=== PATIENT | male | born 1990 | race Caucasian/White ===

== ENCOUNTER 2018-05-24 15:06 | Emergency (ER) | payer SELFPAY ==
--- NOTE | 2018-05-24 16:17 | ER ---
Nurse's Notes [facility] Name: Harvinder Garcia Age: 27 yrs Sex: Male : 1990 Arrival Date: 05/24/2018 Time: 15:08 Bed 9 Private MD: Diagnosis: Cutaneous abscess of face Presentation: 05/24 15:27 Presenting complaint: Patient states: "I had a pimple on my right cheek and I messed aj with it last night but then I woke up and it is even more red and swollen." Abscess noted to right cheek. Transition of care: patient was not received from another setting of care. Onset of symptoms was May 23, 2018. Risk Assessment: Do you want to hurt yourself or someone else? Patient reports no desire to harm self or others. Initial Sepsis Screen: Does the patient meet any 2 criteria? No. Patient's initial sepsis screen is negative. Does the patient have a suspected source of infection? No. Patient's initial sepsis screen is negative. Care prior to arrival: None. 15:27 Method Of Arrival: Ambulatory 15:27 Acuity: MALCOLM 5 aj Triage Assessment: 15:29 General: Appears in no apparent distress. comfortable, Behavior is calm, cooperative, aj appropriate for age. Pain: Complains of pain in right cheek. Neuro: Level of Consciousness is awake, alert, obeys commands, Oriented to person, place, time, situation, Appropriate for age. Respiratory: Airway is patent Respiratory effort is even, unlabored, Respiratory pattern is regular, symmetrical. Derm: Skin is intact, is healthy with good turgor, Skin is pink, warm \\T\\ dry. normal, Abscess located on right cheek is dime sized, has no drainage, is red. Historical: - Allergies: 15:29 No Known Allergies; aj - Home Meds: 15:29 None [Active]; aj - PMHx: 15:29 None; aj - PSHx: 15:29 Left Thumb; aj - Immunization history:: Adult Immunizations up to date, Last tetanus immunization: up to date. - Social history:: Smoking status: Patient/guardian denies using tobacco. - Ebola Screening: : Patient negative for fever greater than or equal to 101.5 degrees Fahrenheit, and additional compatible Ebola Virus Disease symptoms Patient denies exposure to infectious person Patient denies travel to an Ebola-affected area in the 21 days before illness onset No symptoms or risks identified at this time. Screenin:41 Abuse screen: Denies threats or abuse. Denies injuries from another. Nutritional ss screening: No deficits noted. Tuberculosis screening: No symptoms or risk factors identified. Never had TB. Fall Risk None identified. Assessment: 15:41 General: Appears in no apparent distress. comfortable, Behavior is calm, cooperative. ss Pain: Denies pain. Neuro: Level of Consciousness is awake, alert, obeys commands. Cardiovascular: Capillary refill < 3 seconds is brisk in bilateral fingers. Respiratory: Airway is patent Respiratory effort is even, unlabored, Respiratory pattern is regular, symmetrical. GI: No signs and/or symptoms were reported involving the gastrointestinal system. Derm: Skin is intact, is healthy with good turgor, Skin is pink, warm \\T\\ dry. normal. Derm: Abscess located on right cheek is dime sized, is raised. Musculoskeletal: Circulation, motion, and sensation intact. Range of motion: intact in all extremities, Swelling absent. Vital Signs: 15:29 BP 120 / 77; Pulse 77; Resp 20; Temp 98.9; Pulse Ox 98% on R/A; Weight 104.33 kg; aj Height 6 ft. 2 in. (187.96 cm); 15:29 Body Mass Index 29.53 (104.33 kg, 187.96 cm) aj ED Course: 15:08 Patient arrived in ED. as 15:29 Triage completed. aj 15:29 Arm band placed on left wrist. Patient placed in waiting room. aj 15:41 Patient has correct armband on for positive identification. Bed in low position. Call ss light in reach. 15:45 Srinath Markham, ASIYA is PHCP. pm1 15:45 Endy Cade MD is Attending Physician. pm1 16:22 Ann Santa RN is Primary Nurse. ss 16:24 No provider procedures requiring assistance completed. Patient did not have IV access ss during this emergency room visit. Administered Medications: No medications were administered Outcome: 16:16 Discharge ordered by MD. pm1 16:24 Discharged to home ambulatory, with significant other. ss 16:24 Condition: good 16:24 Discharge instructions given to patient, significant other, Instructed on discharge instructions, follow up and referral plans. medication usage, Demonstrated understanding of instructions, follow-up care, medications, Prescriptions given X 1. 16:25 Patient left the ED. ss Signatures: Francesca Dorsey RN RN aj Martinez, Amelia as Smirch, Shelby, RN RN ss Srinath Markham, ASIYA RA[employer] UN[employer]ER pm1
--- NOTE | 2018-05-24 16:17 | EDPHYS ---
Physician Documentation [facility] Name: Harvinder Garcia Age: 27 yrs Sex: Male : 1990 Arrival Date: 05/24/2018 Time: 15:08 Bed 9 Private MD: ED Physician Endy Cade HPI: 05/24 16:14 This 27 yrs old Male presents to ER via Ambulatory with complaints of Abscess.pm1 16:14 the patient presents with a swollen area of the right cheek. Description: raised. pm1 Onset: The symptoms/episode began/occurred 3 day(s) ago. Possible cause(s): unknown, pimple. Associated signs and symptoms: Pertinent negatives: discharge, drainage, fever, headache. Modifying factors: the symptoms are alleviated by cold compress, the symptoms are aggravated by attempting to express. Severity of symptoms: in the emergency department the symptoms have improved. The patient has not experienced similar symptoms in the past. The patient has not recently seen a physician. Historical: - Allergies: 15:29 No Known Allergies; aj - Home Meds: 15:29 None [Active]; aj - PMHx: 15:29 None; aj - PSHx: 15:29 Left Thumb; aj - Immunization history:: Adult Immunizations up to date, Last tetanus immunization: up to date. - Social history:: Smoking status: Patient/guardian denies using tobacco. - Ebola Screening: : Patient negative for fever greater than or equal to 101.5 degrees Fahrenheit, and additional compatible Ebola Virus Disease symptoms Patient denies exposure to infectious person Patient denies travel to an Ebola-affected area in the 21 days before illness onset No symptoms or risks identified at this time. ROS: 16:14 Constitutional: Negative for fever, chills, and weight loss, Eyes: Negative for injury, pm1 pain, redness, and discharge, ENT: Negative for injury, pain, and discharge, Neck: Negative for injury, pain, and swelling, Cardiovascular: Negative for chest pain, palpitations, and edema, Respiratory: Negative for shortness of breath, cough, wheezing, and pleuritic chest pain, Abdomen/GI: Negative for abdominal pain, nausea, vomiting, diarrhea, and constipation, Back: Negative for injury and pain, MS/Extremity: Negative for injury and deformity. 16:14 Neuro: Negative for headache, weakness, numbness, tingling, and seizure. 16:14 Skin: Positive for Pimple to right cheek, Negative for cellulitis. Exam: 16:14 Constitutional: This is a well developed, well nourished patient who is awake, alert, pm1 and in no acute distress. Head/Face: Normocephalic, atraumatic. Eyes: Pupils equal round and reactive to light, extra-ocular motions intact. Lids and lashes normal. Conjunctiva and sclera are non-icteric and not injected. Cornea within normal limits. Periorbital areas with no swelling, redness, or edema. ENT: Nares patent. No nasal discharge, no septal abnormalities noted. Tympanic membranes are normal and external auditory canals are clear. Oropharynx with no redness, swelling, or masses, exudates, or evidence of obstruction, uvula midline. Mucous membranes moist. Neck: Trachea midline, no thyromegaly or masses palpated, and no cervical lymphadenopathy. Supple, full range of motion without nuchal rigidity, or vertebral point tenderness. No Meningismus. Chest/axilla: Normal chest wall appearance and motion. Nontender with no deformity. No lesions are appreciated. Cardiovascular: Regular rate and rhythm with a normal S1 and S2. No gallops, murmurs, or rubs. Normal PMI, no JVD. No pulse deficits. Respiratory: Lungs have equal breath sounds bilaterally, clear to auscultation and percussion. No rales, rhonchi or wheezes noted. No increased work of breathing, no retractions or nasal flaring. Abdomen/GI: Soft, non-tender, with normal bowel sounds. No distension or tympany. No guarding or rebound. No evidence of tenderness throughout. Back: No spinal tenderness. No costovertebral tenderness. Full range of motion. 16:14 MS/ Extremity: Pulses equal, no cyanosis. Neurovascular intact. Full, normal range of motion. 16:14 Skin: Appearance: normal except for affected area, cellulitis, is not appreciated, lesion(s), located on the right cheek, small phlegmon present to right cheek. Needle aspired without any drainage or purulence present. 16:14 Neuro: Orientation: is normal, Motor: is normal, moves all fours, Gait: is steady, at a normal pace, without difficulty. Vital Signs: 15:29 BP 120 / 77; Pulse 77; Resp 20; Temp 98.9; Pulse Ox 98% on R/A; Weight 104.33 kg; aj Height 6 ft. 2 in. (187.96 cm); 15:29 Body Mass Index 29.53 (104.33 kg, 187.96 cm) aj MDM: 15:46 Patient medically screened. pm1 16:14 Data reviewed: vital signs. Data interpreted: Pulse oximetry: on room air is 98 %. pm1 Interpretation: normal. Counseling: I had a detailed discussion with the patient and/or guardian regarding: the historical points, exam findings, and any diagnostic results supporting the discharge/admit diagnosis, the need for outpatient follow up, to return to the emergency department if symptoms worsen or persist or if there are any questions or concerns that arise at home. 16:14 ED course: patient offered narcotic pain medication prescription. Patient refused. pm1 Administered Medications: No medications were administered Disposition: 05/25 06:39 Co-signature as Attending Physician, Endy Cdae MD I agree with the assessment and [facility] plan of care. Disposition: 05/24/18 16:16 Discharged to Home. Impression: Cutaneous abscess of face. - Condition is Stable. - Discharge Instructions: Skin Abscess. - Prescriptions for Clindamycin HCl 300 mg Oral Capsule - take 1 capsule by ORAL route every 6 hours for 10 days; 40 capsule. - Work release form, Medication Reconciliation Form, Thank You Letter, Antibiotic Education form. - Follow up: Emergency Department; When: As needed; Reason: Worsening of condition. Follow up: Private Physician; When: 2 - 3 days; Reason: Recheck today's complaints, Continuance of care, Re-evaluation by your physician. - Problem is new. - Symptoms have improved. Signatures: Francesca Dorsey RN RN aj Anderson, Corey, MD MD cha Smirch, Shelby, RN RN ss Marinas, Patrick, ASIYA [employer]PER[employer] pm1 Corrections: (The following items were deleted from the chart) 05/24 16:25 16:16 05/24/2018 16:16 Discharged to Home. Impression: Cutaneous abscess of face. ss Condition is Stable. Forms are Medication Reconciliation Form, Thank You Letter, Antibiotic Education, Prescription Opioid Use. Follow up: Emergency Department; When: As needed; Reason: Worsening of condition. Follow up: Private Physician; When: 2 - 3 days; Reason: Recheck today's complaints, Continuance of care, Re-evaluation by your physician. Problem is new. Symptoms have improved. pm1
== END 2018-05-24 16:25 | disposition home or self-care (01) ==
LOC: ER 15:06
DX: L02.01 Cutaneous abscess of face (principal)
CPT/HCPCS: 99282

== ENCOUNTER 2022-08-13 13:40 | Emergency (ER) | payer SELFPAY ==
--- OUTSIDE RECORDS SUMMARY | 2022-08-13 13:44 | XMS REPORT | Continuity of Care Document ---
:1990 Author Organization [facility] t Address [address]. [address] [place] [address] Care Team Providers Name Role Phone No, Pcp [facility] Primary Care Physician Unavailable JUANIS SALEEM Attending Clinician Unavailable GIOVANNY GOLDMAN M.D. Attending Clinician Unavailable iGovanny Goldman Attending Clinician Giovanny Goldman Admitting Clinician Problems Condition Condition Condition Status Onset Resolution Last Treating Co mments Source Name Details Category Date Date Treatment Clinician Date LT THUMB LT THUMB Diagnosis Active 2017 Memoria Active 07-10 11:22:00 l 07/10/2017 08:00: Mansoor rizo [facility] 00 PARTIAL PARTIAL Diagnosis Active 2017-07-10 Memoria AMP LEFT AMP LEFT 07-09 02:08:00 l THUMB THUMB 07:00: Jones Active 00 07/09/2017 [facility] NAIL NAIL Diagnosis Active 2017-12-01 Mem oria AVULSION AVULSION 07-09 10:32:00 l Active 07:00: Aubrey 07/09/2017 00 [facility] COLLER COLLER Diagnosis Active 2012-062013-05-18 [place] moria BONE PAIN BONE PAIN 07-10 04:56:00 l Active 00:00: Jones 05/10/2013 [place] Stiff[facility] Stiffness Problem 2017-11-21 Memoria of left of left 11:32:56 l hand, not hand, not Herm lupe elsewhere elsewhere classified classified 11/21/2017 [facility] Localized Localized Problem 2017-11-21 Memoria swelling, swelling, 11:32:56 l mass and mass and Mansoor n lump, left lump, left upper limb upper limb 8 [facility] UNSP OPEN UNSP OPEN Diagnosis Active 2017-12-01 Memoria WOUND OF WOUND OF 10:32:00 l UNSP UNSP Aubrey FINGER W FINGER W DAMAGE DAMAGE Active [facility] Displaced Displaced Problem 2017-10-16 Memoria fracture fracture 19:10:46 l of distal of distal Herm lupe phalanx of phalanx of left left thumb, thumb, initial initial encounter encounter for closed for closed fracture fracture 10/16/2017 [facility] Caught, Caught, Problem 2017-10-16 Me whitaker crushed, crushed, 19:10:46 l jammed, or jammed, or He rmann pinched pinched between between moving moving objects, objects, initial initial encounter encounter 10/16/2017 [facility] Pain of Pain of Problem Active [facility] left hand left hand Phys ici ans Closed Closed Problem Active [facility] displaced displaced Phys ici fracture fracture ans of distal of distal phalanx of phalanx of left thumb left thumb with with routine routine healing healing Laceration Laceration Problem Active [facility] of left of left Physici thumb with thumb with an s damage to damage to nail, nail, foreign foreign body body presence presence unspecifie unspecifie d, d, subsequent subsequent encounter encounter History of Past Illness Condition Condition Condition Status Onset Resolution Last Treating Co mments Source Name Details Category Date Date Treatment Clinician Date Partial Partial Problem 2017-2017-11-21 2017-11-21 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 11:32:56 11:32:56 l transphala transphala 05:59: He rmann ngeal ngeal 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, thumb, subsequent subsequent encounter encounter 08/22/2017 11/21/2017 [facility] Laceration Laceratio Problem 2017-2017-10-16 2017-10-16 Memoria without n without 2-02 19:10:46 19:10:46 l foreign foreign 04:59: Jones body of body of 05 left thumb left thumb with with damage to damage to nail, nail, initial initial encounter encounter 07/18/2017 10/16/2017 [facility] Allergies, Adverse Reactions, Alerts Allergy Allergy Status Severity Reaction(s) Onset Inactive Treating Comm ents Source Name Type Date Date Clinician NO KNOWN Allergy Active [facility] Social History Social Habit Start Date Stop Date Quantity Comments Source History SDOH [facility] Std Drinks [facility] History SDOH [facility] Alcohol Binge Medical Romie ter History SDOH [facility] Alcohol Comment Medical C enter Tobacco use and 2021-01-13 2021-01-[address] [facility] exposure 00:00:00 00:00:00 [facility] Alcohol intake 2021-01-13 2021-01-13 [facility] (finding[facility] History SDOH 2021-01-13 2021-01-[address] [facility] Alcohol Frequency 00:00:00 00:00:00 [facility] Tobacco Comment 2021-01-13 2021-01-[address] [facility] 00:00:00 00:00:00 [facility] Social History 2017-07-10 2017-07-10 [facility] radha 11:57:43 11:57:43 Sex Ass[birth year] At [birth year] [facility] Ada kes 00:00:00 00:00:00 [facility] Smoking Status Start Date Stop Date Source Current every day smoker 2021-01-13 00:00:00 [facility] Medications Ordered Filled Start Stop Current Ordering Indication Dosage Frequency Signature Comments Components Source Medication Medication Date Date Medication? Clinician (SIG) Name Name woo, No Notes: Russell merle [facility] - (Same as: l 03:00: Senokot) sennosides, No Notes: Russell merle [facility] - (Same as: l 03:00: Senokot) gabapentin Yes 300 mg = 1 M emoria 300 MG Oral 1-25 cap, PO, l Capsule 21:54: TID, # 90 Devora nn 00 cap, 0 Refill(s) tramadol Yes 100 mg = 2 Mem oria hydrochlori 1-25 tab, PO, l de 50 MG 21:54: Q6Hnow, 0 Herm lupe Oral Tablet 00 Refill(s) Cephalexin No 500 mg = 1 M emoria 500 MG Oral 1-25 cap, PO, l Capsule 21:54: QID, X 7 Mansoor n [Keflex] 00 day, # 28 cap, 0 Refill(s) Acetaminoph No 1 tab, PO, Memoria en 300 MG / 1-25 Q6H, PRN l Codeine 21:54: Pain, X 15 Herm lupe Phosphate 00 day, # 60 30 MG Oral tab, 0 Tablet Refill(s) [Tylenol with Codeine #3] gabapentin Yes 300 mg = 1 M emoria 300 MG Oral 1-25 cap, PO, l Capsule 21:54: TID, # 90 Devora nn 00 cap, 0 Refill(s) tramadol Yes 100 mg = 2 Mem oria hydrochlori 1-25 tab, PO, l de 50 MG 21:54: Q6Hnow, 0 Herm lupe Oral Tablet 00 Refill(s) Cephalexin No 500 mg = 1 M emoria 500 MG Oral 1-25 cap, PO, l Capsule 21:54: QID, X 7 Mansoor n [Keflex] 00 day, # 28 cap, 0 Refill(s) Acetaminoph No 1 tab, PO, Memoria en 300 MG / -25 Q6H, PRN l Codeine 21:54: Pain, X 15 Herm lupe Phosphate 00 day, # 60 30 MG Oral tab, 0 Tablet Refill(s) [Tylenol with Codeine #3] Dilaudid 0 No 0.5 mg, Memori a 07-10 Route: l 21:13: IVP, ONCE, Dosing Weight 93.182, kg, Priority: STAT, Start date: 07/10/17 15:13:00 SPA SUPERVISOR, Stop date: 07/10/17 15:13:00 SPA SUPERVISOR Dilaudid 2017-0 No 0.5 mg, Memori a 07-10 Route: l 21:13: IVP, ONCE, Dosing Weight 93.182, kg, Priority: STAT, Start date: 07/10/17 15:13:00 SPA SUPERVISOR, Stop date: 07/10/17 15:13:00 SPA SUPERVISOR Ancef No 2 gm, Memoria 07-10 Route: l 21:00: IVPB, Jones 00 ABXQ8H, Dosing Weight 93.182, kg, Start date: 07/10/17 15:00:00 SPA SUPERVISOR, Duration: 1 day, Stop date: 07/11/17 7:00:00 SPA SUPERVISOR, ABX Indication : Bacteremia Ancef 0 No 2 gm, Memoria 125 Route: l 21:00: IVPB, ABXQ8H, Dosing Weight 93.182, kg, Start date: 07/10/17 15:00:00 SPA SUPERVISOR, Duration: 1 day, Stop date: 07/11/17 7:00:00 SPA SUPERVISOR, ABX Indication : Bacteremia ketOROLAC 2017-0 No IV, ONCE Russell merle (ANES) 1-25 l 20:56: ketOROLAC 2017-0 No IV, ONCE Russell merle (ANES) 1-25 l 20:56: ondansetron 0 No Route: IV, Memoria (ANES) 1- Drug form: l 20:55: INJ, ONCE, Stop date: 07/10/17 14:55:00 SPA SUPERVISOR ondansetron 0 No Route: IV, Memoria (ANES) 1- Drug form: l 20:55: INJ, ONCE, Stop date: 07/10/17 14:55:00 SPA SUPERVISOR fentaNYL 2017-0 No Route: IV, Mem oria (ANES) 1- Drug form: l 20:50: INJ, ONCE, Stop date: 07/10/17 14:50:00 SPA SUPERVISOR fentaNYL 2017-0 No Route: IV, Mem oria (ANES) 1- Drug form: l 20:50: INJ, ONCE, Stop date: 07/10/17 14:50:00 SPA SUPERVISOR dexamethaso 2017-0 No Route: IV, Memoria ne (ANES) 1-25 Drug form: l 20:20: INJ, ONCE, Stop date: 07/10/17 14:20:00 SPA SUPERVISOR dexamethaso 2017-0 No Route: IV, Memoria ne (ANES) 1-25 Drug form: l 20:20: INJ, ONCE, Stop date: 07/10/17 14:20:00 SPA SUPERVISOR propofol 2017-0 No Route: IV, Mem oria (ANES) 1-25 Drug form: l 20:11: INJ, ONCE, Stop date: 07/10/17 14:11:00 SPA SUPERVISOR ceFAZolin 2018-0 No Route: IV, Me moria (ANES) - Drug form: l 20:11: INJ, ONCE, Jones 00 Stop date: 07/10/17 14:11:00 SPA SUPERVISOR propofol No Route: IV, Mem oria (ANES) 07-10 Drug form: l 20:11: INJ, ONCE, Jones 00 Stop date: 07/10/17 14:11:00 SPA SUPERVISOR ceFAZolin No Route: IV, Me moria (ANES) 07-10 Drug form: l 20:11: INJ, ONCE, Aubrey 00 Stop date: 07/10/17 14:11:00 SPA SUPERVISOR midazolam No Route: IV, Me moria (ANES) 07-10 Drug form: l 20:10: SOLN, Jones 00 ONCE, Stop date: 07/10/17 14:10:00 SPA SUPERVISOR midazolam No Route: IV, Me moria (ANES) 07-10 Drug form: l 20:10: SOLN, Jones 00 ONCE, Stop date: 07/10/17 14:10:00 SPA SUPERVISOR Promethazin No Notes: Do M emoria e - not give l 19:44: IV push. Jones 00 (Same as: Phenergan) Naloxone No Notes: Memoria - (Same as: l 19:44: Narcan) Flumazenil No Notes: Memor ia 07-10 (Same as: l 19:44: Romazicon) Oxycodone No Notes: Memori a - (Same as: l 19:44: Roxicodone ) Promethazin No Notes: Do M emoria e - not give l 19:44: IV push. Jones 00 (Same as: Phenergan) Naloxone No Notes: Memoria -25 (Same as: l 19:44: Narcan) Flumazenil No Notes: Memor ia - (Same as: l 19:44: Romazicon) Aubrey 00 Oxycodone No Notes: Memori a -25 (Same as: l 19:44: Roxicodone ) Lactated No Route: IV, Mem oria Ringers 1-25 Total l Injection 19:23: Volume: Devora nn IV (ANES) 00 1,000, 1000 mL Start date: 07/10/17 13:23:00 SPA SUPERVISOR, Stop date: 07/10/17 14:23:00 SPA SUPERVISOR Lactated No Route: IV, Mem oria Ringers 1-25 Total l Injection 19:23: Volume: Devora nn IV (ANES) 00 1,000, 1000 mL Start date: 07/10/17 13:23:00 SPA SUPERVISOR, Stop date: 07/10/17 14:23:00 SPA SUPERVISOR Ancef No Notes: Memoria 1-25 (Same as l 15:30: Ancef) Jones 00 Ancef No Notes: Memoria 1-25 (Same as l 15:30: Ancef) Aubrey 00 Docusate No Notes: Memoria 1-25 (Same as: l 15:00: Colace) Aubrey (Do Not Crush) Docusate No Notes: Memoria 1-25 (Same as: l 15:00: Colace) Aubrey (Do Not Crush) Hydromorpho No 0.5 mg, Mem oria ne 25 Route: l 10:34: IVP, ONCE, Dosing Weight 93.182, kg, Priority: STAT, Start date: 07/10/17 4:34:00 SPA SUPERVISOR, Stop date: 07/10/17 4:34:00 SPA SUPERVISOR Hydromorpho No 0.5 mg, Mem oria ne 25 Route: l 10:34: IVP, ONCE, Dosing Weight 93.182, kg, Priority: STAT, Start date: 07/10/17 4:34:00 SPA SUPERVISOR, Stop date: 07/10/17 4:34:00 SPA SUPERVISOR Tramadol No Notes: Not Mem oria 1-25 to exceed l 10:00: 400mg/day. Jones (Same As: Ultram) Acetaminoph No Notes: Max Memoria en -25 acetaminop l 10:00: hen 4000 00 mg/day (4 gm/day). (Same as: Tylenol Extra Strength) Tramadol No Notes: Not Mem oria 07-10 to exceed l 10:00: 400mg/day. Aubrey 00 (Same As: Ultram) Acetaminoph No Notes: Max Memoria en 07-10 acetaminop l 10:00: hen 4000 Aubrey 00 mg/day (4 gm/day). (Same as: Tylenol Extra Strength) Morphine No Notes: Memoria - (Same l 09:09: as:MORPhin Jones 00 e Sulfate) Morphine No Notes: Memoria 07-10 (Same l 09:09: as:MORPhin Aubrey 00 e Sulfate) PlasmaLyte No Notes: Memor ia A PH-7.4 25 (Same as: l 1,000 mL 09:08: Isolyte S Herm lupe 00 PH 7.4) PlasmaLyte No Notes: Memor ia A PH-7.4 07-10 (Same as: l 1,000 mL 09:08: Isolyte S Herm lupe 00 PH 7.4) Oxycodone No Notes: Memori a Hydrochlori 25 (Same as: l de 5 MG 09:04: Roxicodone Herm lupe Oral Tablet 00 ) Diphenhydra No Notes: Russell merle mine -25 (Same as: l 09:04: Benadryl) Aubrey Ondansetron No Notes: Russell merle -25 (Same as: l 09:04: Zofran) Jones MEDICATION WASTE Product Size: 4 mg Product Wasted: ___ mg Oxycodone No Notes: Memori a Hydrochlori 25 (Same as: l de 5 MG 09:04: Roxicodone Herm lupe Oral Tablet 00 ) Diphenhydra No Notes: Russell merle mine -25 (Same as: l 09:04: Benadryl) Aubrey Ondansetron No Notes: Russell merle 1-25 (Same as: l 09:04: Zofran) Aubrey MEDICATION WASTE Product Size: 4 mg Product Wasted: ___ mg Dilaudid 2018-0 No 0.5 mg, Memori a 07-10 Route: l 08:58: IVP, ONCE, Dosing Weight 93.182, kg, Priority: STAT, Start date: 07/10/17 2:58:00 SPA SUPERVISOR, Stop date: 07/10/17 2:58:00 SPA SUPERVISOR Dilaudid 2018-0 No 0.5 mg, Memori a 07-10 Route: l 08:58: IVP, ONCE, Dosing Weight 93.182, kg, Priority: STAT, Start date: 07/10/17 2:58:00 SPA SUPERVISOR, Stop date: 07/10/17 2:58:00 SPA SUPERVISOR Ancef 2018-0 No 2 gm, Memoria 07-10 Route: l 07:33: IVPB, Aubrey ONCE, Dosing Weight 93.182, kg, Priority: STAT, Start date: 07/10/17 1:33:00 SPA SUPERVISOR, Stop date: 07/10/17 1:33:00 SPA SUPERVISOR, ABX Indication : Open Wound Prophylaxi s Ancef 2018-0 No 2 gm, Memoria 07-10 Route: l 07:33: IVPB, Aubrey ONCE, Dosing Weight 93.182, kg, Priority: STAT, Start date: 07/10/17 1:33:00 SPA SUPERVISOR, Stop date: 07/10/17 1:33:00 SPA SUPERVISOR, ABX Indication : Open Wound Prophylaxi s Dilaudid 2018-0 No 1 mg, Memoria 1-25 Route: IV, l 07:00: ONCE, Dosing Weight 93.182, kg, Start date: 07/10/17 1:00:00 SPA SUPERVISOR, Stop date: 07/10/17 1:00:00 SPA SUPERVISOR Dilaudid 2018-0 No 1 mg, Memoria 25 Route: IV, l 07:00: ONCE, Dosing Weight 93.182, kg, Start date: 07/10/17 1:00:00 SPA SUPERVISOR, Stop date: 07/10/17 1:00:00 SPA SUPERVISOR Ondansetron 2018-0 No 4 mg, Memor ia 07-10 Route: l 05:42: IVP, Drug form: INJ, ONCE, Dosing Weight 93.182, kg, Priority: STAT, Start date: 07/09/17 23:42:00 SPA SUPERVISOR, Stop date: 07/09/17 23:42:00 SPA SUPERVISOR Morphine 2018-0 No 6 mg, Memoria 07-10 Route: l 05:42: IVP, ONCE, Aubrey Dosing Weight 93.182, kg, Priority: STAT, Start date: 07/09/17 23:42:00 SPA SUPERVISOR, Stop date: 07/09/17 23:42:00 SPA SUPERVISOR Ondansetron 2018-0 No 4 mg, Memor ia 07-10 Route: l 05:42: IVP, Drug Jones 00 form: INJ, ONCE, Dosing Weight 93.182, kg, Priority: STAT, Start date: 07/09/17 23:42:00 SPA SUPERVISOR, Stop date: 07/09/17 23:42:00 SPA SUPERVISOR Morphine 2018-0 No 6 mg, Memoria 07-10 Route: l 05:42: IVP, ONCE, Jones Dosing Weight 93.182, kg, Priority: STAT, Start date: 07/09/17 23:42:00 SPA SUPERVISOR, Stop date: 07/09/17 23:42:00 SPA SUPERVISOR Tylenol Tylenol Yes [facility] with with Physici Codeine #3 Codeine #3 ans TABS TABS Gabapentin Gabapentin Yes [facility] TABS TABS Physici ans Cephalexin Cephalexin Yes [facility] TABS TABS Physici ans Vital Signs Vital Name Observation Time Observation Value Comments Source HEIGHT 2021-01-13 16:23:00 190.5 cm WEIGHT 2021-01-13 16:23:00 104.327 kg HEIGHT 2021-01-13 16:23:00 190.5 cm WEIGHT 2021-01-13 16:23:00 104.327 kg Height 2017-07-17 11:07:00 74 [in_us] [facility] Weight 2017-07-17 11:07:00 205 [lb_av] [facility] Body Mass Index 2017-07-17 11:07:00 26.32 kg/m2 [facility] Calculated Respitory Rate 2017-07-10 23:13:00 Ernesto Fariaann Heart Rate 2017-07-10 23:13:00 Sanjay Burgos Systolic (mm Hg) 2017-07-10 23:13:00 Russell Burgos Diastolic (mm Hg) 2017-07-10 23:13:00 Mem orial Aubrey Temperature Oral (F) 2017-07-10 23:13:00 97.9 F [facility] Jones Respitory Rate 2017-07-10 21:30:00 Memori al Aubrey Systolic (mm Hg) 2017-07-10 21:30:00 Russell rial Jones Diastolic (mm Hg) 2017-07-10 21:30:00 Mem orial Jones Respitory Rate 2017-07-10 21:15:00 Memori al Jones Systolic (mm Hg) 2017-07-10 21:15:00 Russell rial Aubrey Diastolic (mm Hg) 2017-07-10 21:15:00 Mem orial Aubrey Temperature Oral (F) 2017-07-10 13:36:00 97.4 F Memorial Aubrey Heart Rate 2017-07-10 13:36:00 Memorial Aubrey BMI Calculated 2017-07-10 13:07:00 Memori al Jones Weight 2017-07-10 13:07:00 Memorial Aubrey Height 2017-07-10 13:07:00 187.96 cm Memorial Jones Temperature Oral (F) 2017-07-10 12:38:00 97.6 F Memorial Aubrey Heart Rate 2017-07-10 12:38:00 Memorial Aubrey Height 2017-07-10 05:21:00 187.96 cm Memorial Aubrey Weight 2017-07-10 05:21:00 Memorial Jones BMI Calculated 2017-07-10 05:21:00 Memori al Jones Systolic (mm Hg) 2013-05-11 02:14:00 Russell rial Aubrey Diastolic (mm Hg) 2013-05-11 02:14:00 Mem orial Aubrey Weight 2013-05-11 02:14:00 Memorial Aurbey Height 2013-05-11 02:14:00 190.5 cm Memorial Aubrey Heart Rate 2013-05-11 02:14:00 [facility] Aubrey Respitory Rate 2013-05-11 02:14:00 Memori al Aubrey Procedures Procedure Date / Time Performed Performing Clinician Sourc e [U] XRAY FINGER(S) - 2 VWS 2017-10-02 00:00:00 [facility] MIN. LEFT [id number] [U] XRAY FINGER(S) - 2 VWS 2017-08-27 00:00:00 [facility] MIN. LEFT [id number] [U] XRAY FINGER(S) - 2 VWS 2017-08-04 00:00:00 [facility] MIN. LEFT [id number] History of Hand surgery [facility] Plan of Care Planned Activity Planned Date Details Comments Source Future Scheduled 2022-06-[address] [facility] Test 00:00:00 (12+) [code = Medical Center DEPRESSION SCREENING (12+)] Future Scheduled 2022-02-14 INFLUENZA VACCINE (#1) [facility]00 [code = INFLUENZA Medical Ce nter VACCINE (#1)] Future Scheduled 2022-01-[address] [facility] Test 00:00:00 [facility] Scre[facility] (12+) [code = Tobacco Cessation Counseling and Screening (12+)] Future Scheduled [address] [facility] 00:[facility]:00 (procedure) [code = [facility] Center [id number]] Future Scheduled 2009 DTAP/TDAP/TD VACCINES [facility] 00:[facility]:00 (1 - Tdap) [code = Medical C enter DTAP/TDAP/TD VACCINES (1 - Tdap)] Future Scheduled 2008 HEPATITIS C SCRE[facility]ING [facility] 00:00:00 [code = HEPATITIS C Medical Center SCREENING] Future Scheduled [address] [facility] Test 00:00:00 0-64 YRS (1 - PCV) Medical C enter [code = PNEUMOCOCCAL VACCINE 0-64 YRS (1 - PCV)] Future Scheduled 1991-05-28 COVID-19 VACCINE (#1) [facility] 00:00:00 [code = COVID-[address] VACCINE (#1)] Encounters Start End Encounter Admission Attending Care Care Encounter Source Date/Time Date/Time Type Type Clinicians Facility Department ID 2021-01-13 2021-01-13 Emergency ER [facility] Emergency [id number] [facility] 16:15:00 16:15:00 2020-03-14 2020-03-14 [facility] [id number] [place] 15:30:00 15:30:00 alisha BALTAZAR M.D. Trauma Phy [facility] - maedlyn BALTAZAR M.D. [facility] 2017-10-02 2017-10-02 [facility]SE [facility]O [facility] [id number] [place] 13:30:00 13:30:00 tavares; Susan BALTAZAR ans KYLE, M.D. 2017-08-28 2017-09-27 OP Therapy nullFlavo [facility] [id number] Memoria 19:15:00 04:59:00 Patients r 01 lindsey Burgos 2017-08-28 2017-09-27 OP Therapy nullFlavo [facility] [id number] Memoria 19:15:00 04:59:00 Patients r 01 lindsey RoqueAubrey 2017-08-28 2017-09-26 Outpatient Susi, [id number] 14:15:00 23:59:00 Giovanny Hernandez [id number] 2017-08-28 2017-08-28 [facility] Orthopedics 40 [id number] [place] 13:30:00 13:30:00 t; Susan BALTAZAR ans KYLE, M.D. 2017-08-28 2017-08-28 [facility] UTP [id number] [place] 08:45:00 08:45:00 t; Susan BALTAZAR ans KYLE, M.D. 2017-07-17 2017-08-16 OP Therapy nullFlavo [facility] [id number] Memoria 17:00:00 05:59:00 Patients r January portillo Aubrey 2017-07-17 2017-08-16 OP Therapy nullFlavo [facility] [id number] Memoria 17:00:00 05:59:00 Patients r 00 lindsey Aubrey 2017-07-17 2017-08-15 Outpatient Susi, [id number] 11:00:00 23:59:00 Giovanny [id number] 2017-08-14 2017[facility] [id number] [place] 09:45:00 09:45:00 t; Susan BALTAZAR ans KYLE, M.D. 2017-07-17 2017-07-17 Appointkady [facility] Orthoped[facility] [id number] [place] 09:30:00 09:30:00 t; Susan BALTAZAR ans KYLE, M.D. 2017-07-10 2017-07-10 Inpatient [facility]Flavo [facility] [id number] Memoria 05:21:00 23:35:00 r Jones 24 [facility] 2017-07-10 2017-07-10 Inpatient nullFlavo [facility] [id number] Memoria 05:21:00 23:35:00 r Jones 24 [facility] 2017-07-09 2017-07-10 Outpatient Susi [facility] [id number] 23:21:00 17:35:00 Giovanny Hernandez 2017-07-10 2017-07-10 AppointJOSE ALBERTO Pastor UTP [id number] [place] 07:30:00 07:30:00 t; Susan BALTAZAR ans KYLE, M.D. 2013-05-10 2013-05-10 Outpatient [id number] Memoria 20:01:00 21:54:00 [id number] l [id number] Mansoor n 01 [facility] 2013-05-10 2013-05-10 Emergency nullFlavo Not Sent [id number] Memoria 20:01:00 21:54:00 r 03 l Jones 2013-05-10 2013-05-10 Emergency nullFlavo Not Sent [id number] Memoria 20:01:00 21:54:00 r 03 l Aubrey Results Test Description Test Time Test Comments Results Result [facility] e Comments CT, BRAIN, WITHOUT 2021-01-13 Reason for CONTRAST 20:54:00 exam:->dizzine ssWhat is the [facility] KHANH, requirement?-> KENNEDI SINGH : No Sedation 1990 Sex: M FI NAL REPORT EXAM/TECHNIQUE: Noncontrast CT of the head. INDICATION: Dizziness. COMPARISON: None. FINDINGS: Arrieta-white differentiation is preserved. No acute intracranial hemorrhage. No extra-axial fluid collection. Ventricles are normal in appearance. Basal cisterns are patent. No midline shift. Cerebellar tonsils are normal in appearance. Orbits are normal. Bilateral maxillary mucosal retention cyst. Mastoid air cells are clear. No acute osseous processes or suspicious osseous lesion. Midline structures are normal. Visualized face and neck are unremarkable. Impression: No acute intracranial process. Signed: Shree Portillo MDReport Verified Date/Time: 01/13/2021 20:54:24 C METABOLIC PANEL 2021-01-13 18:48:00 Test Item Value Reference Range Interpretation Comme nts SODIUM (BEAKER) (test code = 139 meq/L 135-148 381) POTASSIUM (BEAKER) (test code 4.1 meq/L 3.5-5.5 Specimen slightly hemolyzed = 379) CHLORIDE (BEAKER) (test code = 104 meq/L 98-106 382) CO2 (BEAKER) (test code = 355) 24 meq/L 20-31 BLOOD UREA NITROGEN (BEAKER) 8 mg/dL 10-26 L (test code = 354) CREATININE (BEAKER) (test code 0.83 mg/dL 0.50-1.20 Specimen slightly hemolyzed = 358) GLUCOSE RANDOM (BEAKER) (test 93 mg/dL 70-110 code = 652) CALCIUM (BEAKER) (test code = 9.4 mg/dL 8.5-10.5 697) EGFR (BEAKER) (test code = I NSUFFICIENT CLINICAL DATA TO 1092) CALCULATE ESTIM ATED GFR. Wheelchair Van Driver ID - [id number] 18:47:00 Test Item Value Reference Range Interpretation Comments MAGNESIUM (BEAKER) 1.8 mg/dL 1.5-3.0 Specimen slightly (test code = 627) hemolyzed Wheelchair Van Driver ID - [id number] W/PLT COUNT & AUTO [id number] 18:28:00 Test Item Value Reference Range Interpretation Comments WHITE BLOOD CELL COUNT (BEAKER) 10.8 K/ L 4.0-10.0 H (test code = 775) RED BLOOD CELL COUNT (BEAKER) 4.96 M/ L 4.20-5.80 (test code = 761) HEMOGLOBIN (BEAKER) (test code = 15.9 GM/DL 13.0-16.8 410) HEMATOCRIT (BEAKER) (test code = 46.7 % 36.0-50.0 411) MEAN CORPUSCULAR VOLUME (BEAKER) 94.2 fL 82.0-99.0 (test code = 753) MEAN CORPUSCULAR HEMOGLOBIN 32.1 pg 27.0-33.0 (BEAKER) (test code = 751) MEAN CORPUSCULAR HEMOGLOBIN CONC 34.0 GM/DL 32.0-36.0 (BEAKER) (test code = 752) RED CELL DISTRIBUTION WIDTH 11.8 % 12.0-15.0 L (BEAKER) (test code = 412) PLATELET COUNT (BEAKER) (test 237 K/CU MM 150-430 code = 756) MEAN PLATELET VOLUME (BEAKER) 10.9 fL 6.0-11.5 (test code = 754) NUCLEATED RED BLOOD CELLS 0 /100 WBC 0-0 (BEAKER) (test code = 413) NEUTROPHILS RELATIVE PERCENT 81 % (BEAKER) (test code = 429) LYMPHOCYTES RELATIVE PERCENT 13 % (BEAKER) (test code = 430) MONOCYTES RELATIVE PERCENT 5 % (BEAKER) (test code = 431) EOSINOPHILS RELATIVE PERCENT 1 % (BEAKER) (test code = 432) BASOPHILS RELATIVE PERCENT 0 % (BEAKER) (test code = 437) NEUTROPHILS ABSOLUTE COUNT 8.77 K/ L 1.80-8.00 H (BEAKER) (test code = 670) LYMPHOCYTES ABSOLUTE COUNT 1.41 K/ L 1.48-4.50 L (BEAKER) (test code = 414) MONOCYTES ABSOLUTE COUNT (BEAKER) 0.53 K/ L 0.00-1.30 (test code = 415) EOSINOPHILS ABSOLUTE COUNT 0.07 K/ L 0.00-0.50 (BEAKER) (test code = 416) BASOPHILS ABSOLUTE COUNT (BEAKER) 0.03 K/ L 0.00-0.20 (test code = 417) IMMATURE GRANULOCYTES-RELATIVE 0 % 0-0 PERCENT (BEAKER) (test code = 2801) [U] XRAY FINGER(S) - 2 VWS MIN. LEFT [id number] 15:42:00Images acquired, not reported on this accession number.[facility][U] XRAY FINGER(S) - 2 VWS MIN. LEFT [id number] 13:26:00Images acquired, not reported on this accession number.[facility][U] XRAY FINGER(S) - 2 VWS MIN. LEFT [id number] 2017-08-14 09:52:00Images acquired, not reported on this accession number.[facility][U] XRAY FINGER(S) - 2 VWS MIN. LEFT [id number] 10:10:00Images acquired, not reported on this accession number.[facility]iciansELECTROLYTES 2017-07-10 09:14:00 Test Item Value Reference Range Interpretation Comments Creatinine Lvl (test code = Creatinine 0.68 0.50-1.40 Lvl) [facility]lyvvykIRAVRGBVAENR8347-29-25 09:14:00 Test Item Value Reference Range Interpretation Comments Sodium Lvl (test code = Sodium Lvl) 137 135-145 [facility]NsmjwdeXJUDDKKOTEBL4224-32-33 09:14:00 Test Item Value Reference Range Interpretation Comments Potassium Lvl (test code = Potassium 3.8 3.5-5.1 Lvl) [facility]UyyinbyBNAAMRVAGSGF4284-03-31 09:14:00 Test Item Value Reference Range Interpretation Comments Chloride Lvl (test code = Chloride Lvl) 105 95-109 [facility]YxjcmotKKGXIKHNWLRE8344-77-18 09:14:00 Test Item Value Reference Range Interpretation Comments CO2 (test code = CO2) 25 24-32 [facility]PsrgjatPIQUISTPZVJX5358-31-95 09:14:00 Test Item Value Reference Range Interpretation Comments Calcium Lvl (test code = Calcium Lvl) 8.8 8.5-10.5 [facility]zakvheIXSBPSPYZMUD3727-77-14 09:14:00 Test Item Value Reference Range Interpretation Comments BUN (test code = BUN) 18 7-22 [facility]SjvieluQWWLBFRRKFQA9540-78-50 09:14:00 Test Item Value Reference Range Interpretation Comments Glucose Lvl (test code = Glucose Lvl) 103 70-99 [facility]XhoejynUVYPDWKDLV6295-37-08 09:14:00 Test Item Value Reference Range Interpretation Comments MPV (test code = MPV) 9.0 7.4-10.4 [facility] [id number] 09:14:00 Test Item Value Reference Range Interpretation Comments ABO/Rh (test code = ABO/Rh) O POS [facility] [id number] 09:14:00 Test Item Value Reference Range Interpretation Comments Antibody Scrn (test Negative (07/10/17 3:14 code = Antibody Scrn) AM) [facility] HospitalVjbxlwzACHEWAVNSN5566-63-67 09:14:00 Test Item Value Reference Range Interpretation Comments Platelet (test code = Platelet) 197 133-450 [facility]GgikyslQFKBLBCFNBJD0134-62-06 09:14:00 Test Item Value Reference Range Interpretation Comments AGAP (test code = AGAP) 10.8 10.0-20.0 [facility]ag[facility]mlJDIPLVSRAFNV5134-79-33 09:14:00 Test Item Value Reference Range Interpretation Comments eGFR (test code = eGFR) 132 [id number] 09:14:00 Test Item Value Reference Range Interpretation Comments Creatinine Lvl (test code = Creatinine 0.68 0.50-1.40 Lvl) [facility]RkshucjFLYZKPNLWTXL2822-86-52 09:14:00 Test Item Value Reference Range Interpretation Comments Sodium Lvl (test code = Sodium Lvl) 137 135-145 [facility]LuazhfpTSJIHQZOUWIQ5063-77-18 09:14:00 Test Item Value Reference Range Interpretation Comments Potassium Lvl (test code = Potassium 3.8 3.5-5.1 Lvl) [facility]DokrxsjZXNWHFIVFYGL0380-10-79 09:14:00 Test Item Value Reference Range Interpretation Comments Chloride Lvl (test code = Chloride Lvl) 105 95-109 [facility]YylapamPKHEJPWIJTHK7700-50-72 09:14:00 Test Item Value Reference Range Interpretation Comments CO2 (test code = CO2) 25 24-32 [facility]EjtohgxEZMMHSCMWECK4284-73-03 09:14:00 Test Item Value Reference Range Interpretation Comments Calcium Lvl (test code = Calcium Lvl) 8.8 8.5-10.5 [facility]AldeksjFLVKKBTJVRJP3475-38-05 09:14:00 Test Item Value Reference Range Interpretation Comments BUN (test code = BUN) 18 7-22 [facility]VpxwkmrHVEBKWBVTNVR6893-46-22 09:14:00 Test Item Value Reference Range Interpretation Comments Glucose Lvl (test code = Glucose Lvl) 103 70-99 [facility] HospitalJjuedcbJIVKKYPPTF5648-00-11 09:14:00 Test Item Value Reference Range Interpretation Comments MCHC (test code = MCHC) 33.0 32.0-36.0 [facility] HospitalViprjbdWYKZIONHAQ1967-38-65 09:14:00 Test Item Value Reference Range Interpretation Comments MPV (test code = MPV) 9.0 7.4-10.4 [facility] HospitalKavswweLWICXKCWXW9513-10-05 09:14:00 Test Item Value Reference Range Interpretation Comments Platelet (test code = Platelet) 197 133-450 [facility] HospitalQreikvcIPKXJQYGWE5590-95-31 09:14:00 Test Item Value Reference Range Interpretation Comments MCHC (test code = MCHC) 33.0 32.0-36.0 [facility] HospitalNgplwvaGUMNYUYGCP6598-03-88 09:14:00 Test Item Value Reference Range Interpretation Comments WBC (test code = WBC) 11.2 3.7-10.4 [facility] HospitalGmysxelCARSLYLVYC2029-22-08 09:14:00 Test Item Value Reference Range Interpretation Comments Hgb (test code = Hgb) 15.3 14.0-18.0 [facility] HospitalCfqwvkdYDOPSPUDKZ2079-40-36 09:14:00 Test Item Value Reference Range Interpretation Comments MCH (test code = MCH) 31.1 pg 27.0-31.0 [facility] HospitalQdsmkgjQCLWVPBBRF0592-55-72 09:14:00 Test Item Value Reference Range Interpretation Comments MCV (test code = MCV) 94.1 80.0-94.0 [facility] HospitalFzisolaQZKTNFGWRB6672-72-65 09:14:00 Test Item Value Reference Range Interpretation Comments Hct (test code = Hct) 46.2 42.0-54.0 [facility] HospitalTirpkdiLGJQYNTILV0520-85-47 09:14:00 Test Item Value Reference Range Interpretation Comments RDW (test code = RDW) 13.0 11.5-14.5 [facility] HospitalXkqgbflJTVFPLNHHX1288-45-68 09:14:00 Test Item Value Reference Range Interpretation Comments RBC (test code = RBC) 4.91 4.70-6.10 [facility] HospitalJxynottTNTTWXKWED3547-77-45 09:14:00 Test Item Value Reference Range Interpretation Comments WBC (test code = WBC) 11.2 3.7-10.4 [facility] HospitalIemhkhxAEWATVUZQK8495-23-36 09:14:00 Test Item Value Reference Range Interpretation Comments PTT (test code = PTT) 33.0 s 22.9-35.8 [facility] HospitalYinrcyvMRYBXJEJBW1732-85-29 09:14:00 Test Item Value Reference Range Interpretation Comments PT (test code = PT) 12.5 s 12.0-14.7 [facility] HospitalMdixzanUAEWUUYNPH4517-23-94 09:14:00 Test Item Value Reference Range Interpretation Comments INR (test code = INR) 0.93 1 0.85-1.17 [facility] HospitalPfegxhcSFDVZDFFZO3598-74-99 09:14:00 Test Item Value Reference Range Interpretation Comments Monocytes # (test code 0.8 See_Comment [Aut omated message] The = Monocytes #) system which generated this result tra nsmitted reference range : <=0.8. The reference r jimmy was not used to int erpret this result as normal/abnormal . [facility] HospitalNllhbxnYZVDUDKMZJ9222-58-33 09:14:00 Test Item Value Reference Range Interpretation Comments Segs-Bands # (test code = Segs-Bands #) 7.9 1.5-8.1 [facility] HospitalXjudoywELIMAHCVUQ6483-67-07 09:14:00 Test Item Value Reference Range Interpretation Comments Basophils (test code = 0.7 See_Comment [Aut omated message] The Basophils) system which ge nerated this result tra nsmitted reference range : <=1.0. The reference r jimmy was not used to int erpret this result as normal/abnormal . [facility] HospitalDcwpqqdLBIXLNGBNO5531-95-28 09:14:00 Test Item Value Reference Range Interpretation Comments Eosinophils (test code = 2.3 See_Comment [A utomated message] The Eosinophils) system which ge nerated this result tra nsmitted reference range : <=4.0. The reference r jimmy was not used to int erpret this result as normal/abnormal . [facility] HospitalNjgcflwJQXKSYOEJP6478-72-72 09:14:00 Test Item Value Reference Range Interpretation Comments Lymphocytes # (test code = Lymphocytes 2.2 1.0-5.5 #) [facility] HospitalWildkhaAOCAQWONMZ3353-25-03 09:14:00 Test Item Value Reference Range Interpretation Comments Basophils # (test code 0.1 See_Comment [Aut omated message] The = Basophils #) system which generated this result tra nsmitted reference range : <=0.2. The reference r jimmy was not used to int erpret this result as normal/abnormal . [facility] HospitalJxnosxkAGUBFOGXOI8008-86-24 09:14:00 Test Item Value Reference Range Interpretation Comments Eosinophils # (test code 0.3 See_Comment [A utomated message] The = Eosinophils #) system whic h generated this result tra nsmitted reference range : <=0.5. The reference r jimmy was not used to int erpret this result as normal/abnormal . [facility] HospitalCnqldolENTJJVJGSY8283-10-45 09:14:00 Test Item Value Reference Range Interpretation Comments Hgb (test code = Hgb) 15.3 14.0-18.0 [facility] HospitalXcwsolfPIIDMKLRIC2580-45-52 09:14:00 Test Item Value Reference Range Interpretation Comments Monocytes (test code = Monocytes) 6.9 2.0-12.0 [facility] HospitalKchddiiAEONLROCWD7085-63-22 09:14:00 Test Item Value Reference Range Interpretation Comments Lymphocytes (test code = Lymphocytes) 19.6 20.0-40.0 [facility] HospitalEllsybcVPJUWCURUZ6411-54-98 09:14:00 Test Item Value Reference Range Interpretation Comments Segs (test code = Segs) 70.5 45.0-75.0 [facility] HospitalIfmrctgRRLIYEZBWH8137-96-46 09:14:00 Test Item Value Reference Range Interpretation Comments MCH (test code = MCH) 31.1 pg 27.0-31.0 [facility] HospitalLdapfotARUMDBVQWE8156-60-48 09:14:00 Test Item Value Reference Range Interpretation Comments MCV (test code = MCV) 94.1 80.0-94.0 [facility] HospitalHdvfsdqJFXVJTYXZN5637-70-77 09:14:00 Test Item Value Reference Range Interpretation Comments Hct (test code = Hct) 46.2 42.0-54.0 [facility] HospitalNtuvjrbAXJDOFIKXU4377-70-73 09:14:00 Test Item Value Reference Range Interpretation Comments RDW (test code = RDW) 13.0 11.5-14.5 [facility] HospitalZiiucueYXNETHJCQP4198-76-86 09:14:00 Test Item Value Reference Range Interpretation Comments RBC (test code = RBC) 4.91 4.70-6.10 [place] [id number] 09:14:00 Test Item Value Reference Range Interpretation Comments PTT (test code = PTT) 33.0 s 22.9-35.8 [facility] HospitalDzqenoiACBYLYLHZH3886-55-82 09:14:00 Test Item Value Reference Range Interpretation Comments PT (test code = PT) 12.5 s 12.0-14.7 [facility] HospitalDifkjsiKSKMRKEAND4857-39-84 09:14:00 Test Item Value Reference Range Interpretation Comments INR (test code = INR) 0.93 1 0.85-1.17 [place] [id number] 09:14:00 Test Item Value Reference Range Interpretation Comments Monocytes # (test code 0.8 See_Comment [Aut omated message] The = Monocytes #) system which generated this result tra nsmitted reference range : <=0.8. The reference r jimmy was not used to int erpret this result as normal/abnormal . [facility] HospitalCnqratnNEOKYFBLCQ3400-69-09 09:14:00 Test Item Value Reference Range Interpretation Comments Segs-Bands # (test code = Segs-Bands #) 7.9 1.5-8.1 [facility] HospitalTcpzkxvGOEWLNXYBK8899-29-32 09:14:00 Test Item Value Reference Range Interpretation Comments Basophils (test code = 0.7 See_Comment [Aut omated message] The Basophils) system which ge nerated this result tra nsmitted reference range : <=1.0. The reference r jimmy was not used to int erpret this result as normal/abnormal . [facility] HospitalDwbkajzYXPVLYXDWM4898-47-36 09:14:00 Test Item Value Reference Range Interpretation Comments Eosinophils (test code = 2.3 See_Comment [A utomated message] The Eosinophils) system which ge nerated this result tra nsmitted reference range : <=4.0. The reference r jimmy was not used to int erpret this result as normal/abnormal . [facility]LsxlaveNFBIHKLCJA0078-99-21 09:14:00 Test Item Value Reference Range Interpretation Comments Lymphocytes # (test code = Lymphocytes 2.2 1.0-5.5 #) [facility] HospitalSzeenkmUAWFGAZHDN7732-75-81 09:14:00 Test Item Value Reference Range Interpretation Comments Basophils # (test code 0.1 See_Comment [Aut omated message] The = Basophils #) system which generated this result tra nsmitted reference range : <=0.2. The reference r jimmy was not used to int erpret this result as normal/abnormal . [facility] HospitalHxbkctuTGNDYPMNQI4209-10-63 09:14:00 Test Item Value Reference Range Interpretation Comments Eosinophils # (test code 0.3 See_Comment [A utomated message] The = Eosinophils #) system whic h generated this result tra nsmitted reference range : <=0.5. The reference r jimmy was not used to int erpret this result as normal/abnormal . [facility]YyapozzXJKOKPTYQL4997-10-90 09:14:00 Test Item Value Reference Range Interpretation Comments Monocytes (test code = Monocytes) 6.9 2.0-12.0 [facility]OspzuvdJOYOVJZNNJ7695-94-09 09:14:00 Test Item Value Reference Range Interpretation Comments Lymphocytes (test code = Lymphocytes) 19.6 20.0-40.0 [facility] HospitalBtblazfJCRHNFTLPV2516-11-15 09:14:00 Test Item Value Reference Range Interpretation Comments Segs (test code = Segs) 70.5 45.0-75.0 [facility] BMCFXZV5074-48-73 09:14:00 Test Item Value Reference Range Interpretation Comments ABO/Rh (test code = ABO/Rh) O POS [facility] [employer] [id number] 09:14:00 Test Item Value Reference Range Interpretation Comments Antibody Scrn (test Negative (07/10/17 3:14 code = Antibody Scrn) AM) [facility]rixseeYZOBRZLGEFSO0189-63-63 09:14:00 Test Item Value Reference Range Interpretation Comments AGAP (test code = AGAP) 10.8 10.0-20.0 [facility]ZghakmfAWYAGBLTWXYV3879-05-99 09:14:00 Test Item Value Reference Range Interpretation Comments eGFR (test code = eGFR) 132 [facility]
[2022-08-13 14:14] LABS: Hematocrit 47.3 % (39.6-49.0); Lymphocytes % 32.9 % (15.3-44.8); MCV 92.3 fL (80-100); MPV 9.2 fL (7.6-11.3); RBC Red Blood Cell Count 5.12 M/uL (4.33-5.43)
[2022-08-13 14:36] LABS: Bilirubin Direct 0.1 mg/dL (0-0.2); Bilirubin Total 0.7 mg/dL (0.2-1.0); Magnesium 2.1 mg/dL (1.6-2.4); Protein, Total 7.2 g/dL (6.4-8.2); Troponin High Sensitivity 3.8 pg/mL (<58.9)
--- NOTE | 2022-08-13 15:23 | RAD REPORT ---
EXAM DESCRIPTION: CT - Chest For Pe Angio - 08/13/2022 3:05 pm CLINICAL HISTORY: SOB COMPARISON: No comparisons TECHNIQUE: Dynamically enhanced axial 3 mm thick images of the chest were obtained during administra tion of <100> mL Isovue 370 IV contrast. Coronal and oblique reconstruction images were generated and reviewed. Exam utilizes a protocol for optimal evaluation of pulmonary arterial tree. Maximum intensity projections 3D imaging was utilized All CT scans are performed using dose optimization technique as appropriate and may include automated exposure control or mA/KV adjustment according to patient size. FINDINGS: Chest Wall: No suspicious thyroid nodules or pathologic lymphadenopathy. Lungs: No acute abnormality. Pleura: No significant effusions or pneumothorax. Mediastinum/iris: No pathologic lymphadenopathy. Pulmonary arteries/Aorta: No filling defect identified. No aortic aneurysm. Heart: No significant pericardial effusion. Normal heart size. Upper abdomen: No acute abnormality. Bones: No acute abnormality. IMPRESSION: Negative for pulmonary embolism. No acute findings within the chest.
--- NOTE | 2022-08-13 15:42 | ER ---
Nurse's Notes [facility] Name: Harvinder Garcia Age: 31 yrs Sex: Male : 1990 Arrival Date: 08/13/2022 Time: 13:42 Bed 14 Private MD: Diagnosis: Dyspnea;Chest pain, unspecified Presentation: 08/13 13:47 Chief complaint: Patient states: cooling sensation to chest/ back that began 2 days ago ss after smoking new "banana menthol" vape. PT also reports severe anxiety and wants to make sure he didn't "crystalize" his lungs. Coronavirus screen: Client denies travel out of the [place] in the last 14 days. Ebola Screen: Patient denies exposure to infectious person. Patient denies travel to an Ebola-affected area in the 21 days before illness onset. Initial Sepsis Screen: Does the patient meet any 2 criteria? No. Patient's initial sepsis screen is negative. Does the patient have a suspected source of infection? No. Patient's initial sepsis screen is negative. Risk Assessment: Do you want to hurt yourself or someone else? Patient reports no desire to harm self or others. Onset of symptoms was August 11, 2022. 13:47 Method Of Arrival: Ambulatory ss 13:47 Acuity: MALCOLM 3 ss Triage Assessment: 14:36 General: Appears in no apparent distress. comfortable, Behavior is calm, cooperative. db Historical: - Allergies: 14:08 No Known Allergies; ss - Home Meds: 14:08 None [Active]; ss - PMHx: 14:08 None; ss - PSHx: 14:08 None; ss - Immunization history:: Client reports having NOT received the Covid vaccine. - Social history:: Smoking status: Reported history of juuling and/or vaping. Screenin:12 [facility] ED Fall Risk Assessment (Adult) History of falling in the last 3 months, db including since admission No falls in past 3 months (0 pts) Confusion or Disorientation No (0 pts) Intoxicated or Sedated No (0 pts) Impaired Gait No (0 pts) Mobility Assist Device Used No (0 pt) Altered Elimination No (0 pt) Score/Fall Risk Level 0 - 2 = Low Risk Oriented to surroundings, Maintained a safe environment. Abuse screen: Denies threats or abuse. Denies injuries from another. Nutritional screening: No deficits noted. Tuberculosis screening: No symptoms or risk factors identified. Assessment: 14:08 Reassessment: Patient appears in no apparent distress at this time. Patient and/or db family updated on plan of care and expected duration. Pain level reassessed. Patient is alert, oriented x 3, equal unlabored respirations, skin warm/dry/pink. patient states has a "cool" feeling in center of chest x 2 days after vaping. General: Appears in no apparent distress. comfortable, Behavior is calm, cooperative. Pain: Complains of pain in chest. Neuro: Level of Consciousness is awake, alert, obeys commands, Oriented to person, place, time, situation, Speech is normal. Cardiovascular: Reports palpitations. Respiratory: Airway is patent Respiratory effort is even, unlabored, Respiratory pattern is regular, symmetrical. 14:57 Reassessment: Patient appears in no apparent distress at this time. Patient and/or db family updated on plan of care and expected duration. Pain level reassessed. Patient is alert, oriented x 3, equal unlabored respirations, skin warm/dry/pink. patient to CT. Vital Signs: 13:47 Pulse 88; Resp 16; Temp 98.1; Pulse Ox 98% on R/A; Weight 102.06 kg; Height 6 ft. 2 in. ss (187.96 cm); Pain 0/10; 14:07 BP 119 / 86; Pulse 81; Resp 17 S; Pulse Ox 98% on R/A; db 14:20 BP 117 / 82; Pulse 73; Resp 16; Pulse Ox 97% on R/A; db 15:30 BP 127 / 87; Pulse 75; Resp 18; Pulse Ox 95% on R/A; db 13:47 Body Mass Index 28.89 (102.06 kg, 187.96 cm) Vitals: 14:07 Cardiac Rhythm Assessment Regular Sinus rhythm. db ED Course: 13:42 Patient arrived in ED. mr 13:44 Flaco Shelley PA is PHCP. jmm 13:44 Vikash Gomez DO is Attending Physician. jmm 13:49 Doris Valdez, RN is Primary Nurse. db 14:08 Triage completed. ss 14:08 Arm band placed on right wrist. ss 14:12 Patient has correct armband on for positive identification. Bed in low position. Call db light in reach. Side rails up X 1. Client placed on continuous cardiac and pulse oximetry monitoring. NIBP monitoring applied. 14:37 Inserted saline lock: 20 gauge in right antecubital area, using aseptic technique. db 15:07 CT Chest For PE Angio In Process Unspecified. EDMS 15:30 No provider procedures requiring assistance completed. IV discontinued, intact, db bleeding controlled, No redness/swelling at site. Administered Medications: No medications were administered Medication: 15:30 VIS not applicable for this client. db Outcome: 15:30 Discharged to home ambulatory, with family. db 15:30 Condition: stable 15:30 Discharge instructions given to patient, family, Instructed on discharge instructions, follow up and referral plans. Prescriptions given X 1. 15:41 Discharge ordered by . josé antonio 16:25 Patient left the ED. db Signatures: Dispatcher [employer] EDMS Flaco Shelley PA PA jmm Rivera, Mary mr Smirch, Shelby, RN RN Doris Fuentes RN RN db
--- NOTE | 2022-08-13 15:42 | EDPHYS ---
Physician Documentation [facility] Name: Harvinder Garcia Age: 31 yrs Sex: Male : 1990 Arrival Date: 08/13/2022 Time: 13:42 Bed 14 Private MD: ED Physician Vikash Gomez HPI: 08/13 13:51 This 31 yrs old Male presents to ER via Ambulatory with complaints of Chest discomfort. [facility] 13:51 The patient or guardian reports chest pain that is located primarily in the substernal [facility] area. The pain radiates to Associated signs and symptoms: Pertinent positives: lightheadedness, palpitations. Is a 31-year-old male with no chronic medical conditions presents emerged part medical complaints of chest discomfort which radiates into his back. Patient states he started a new type of vape product. Also complains of tingling to both of his hands, states also feels fatigued and anxious.. Historical: - Allergies: 14:08 No Known Allergies; ss - Home Meds: 14:08 None [Active]; ss - PMHx: 14:08 None; ss - PSHx: 14:08 None; ss - Immunization history:: Client reports having NOT received the Covid vaccine. - Social history:: Smoking status: Reported history of juuling and/or vaping. ROS: 13:51 Constitutional: Negative for fever, chills, and weight loss. jmm 13:51 Cardiovascular: Positive for chest pain, Negative for 13:51 All other systems are negative. Exam: 13:51 Constitutional: This is a well developed, well nourished patient who is awake, alert, jmm and in no acute distress. Head/Face: atraumatic. Eyes: EOMI, no conjunctival erythema appreciated ENT: Moist Mucus Membranes Neck: Trachea midline, Supple Chest/axilla: Normal chest wall appearance and motion. Cardiovascular: Regular rate and rhythm. No edema appreciated Respiratory: Normal respirations, no respiratory distress appreciated Abdomen/GI: Non distended Back: Normal ROM Skin: General appearance color normal MS/ Extremity: Moves all extremities, no obvious deformities appreciated, no edema noted to the lower extremities Neuro: Awake and alert Psych: Behavior is normal, Mood is normal, Patient is cooperative and pleasant Vital Signs: 13:47 Pulse 88; Resp 16; Temp 98.1; Pulse Ox 98% on R/A; Weight 102.06 kg; Height 6 ft. 2 in. ss (187.96 cm); Pain 0/10; 14:07 BP 119 / 86; Pulse 81; Resp 17 S; Pulse Ox 98% on R/A; db 14:20 BP 117 / 82; Pulse 73; Resp 16; Pulse Ox 97% on R/A; db 15:30 BP 127 / 87; Pulse 75; Resp 18; Pulse Ox 95% on R/A; db 13:47 Body Mass Index 28.89 (102.06 kg, 187.96 cm) ss MDM: 13:51 Patient medically screened. [facility] 15:40 Data reviewed: vital signs, nurses notes. [facility] 19:15 Differential diagnosis: acute myocardial infarction, anxiety, gastroesophageal reflux jmm disease (GERD), pulmonary embolus, Pneumomediastinum. Counseling: I had a detailed discussion with the patient and/or guardian regarding: the historical points, exam findings, and any diagnostic results supporting the discharge/admit diagnosis, lab results, radiology results, the need for outpatient follow up, to return to the emergency department if symptoms worsen or persist or if there are any questions or concerns that arise at home. 08/13 13:52 Order name: Basic Metabolic Panel; Complete Time: 14:36 [facility] 08/13 13:52 Order name: CBC with Diff; Complete Time: 14:16 08/13 13:52 Order name: LFT's; Complete Time: 14:36 08/13 13:52 Order name: Magnesium; Complete Time: 14:36 [facility] 08/13 13:52 Order name: Troponin HS; Complete Time: 14:36 [facility] 08/13 13:52 Order name: EKG; Complete Time: 13:53 08/13 13:52 Order name: Cardiac monitoring; Complete Time: 14:12 08/13 13:52 Order name: EKG - Nurse/Tech; Complete Time: 14:12 [facility] 08/13 13:52 Order name: IV Saline Lock; Complete Time: 14:12 [facility] 08/13 13:52 Order name: Labs collected and sent; Complete Time: 14:12 [facility] 08/13 13:52 Order name: O2 Per Protocol; Complete Time: 14:12 [facility] 08/13 13:52 Order name: O2 Sat Monitoring; Complete Time: 14:12 [facility] 08/13 13:52 Order name: CT Chest For PE Angio; Complete Time: 15:25 jm Administered Medications: No medications were administered Disposition: 16:50 Co-signature as Attending Physician, Vikash Gomez DO I was immediately available on-site ms3 in the Emergency Department for consultation in the care of the patient. Disposition Summary: 08/13/22 15:41 Discharge Ordered Location: Home [facility] Condition: Stable [facility] Diagnosis - Dyspnea jmm - Chest pain, unspecified jmm Followup: jmm - With: Private Physician - When: 2 - 3 days - Reason: Recheck today's complaints, Continuance of care, Re-evaluation by your physician Discharge Instructions: - Discharge Summary Sheet [facility] - Nonspecific Chest Pain, Adult jm - Managing Anxiety, Adult [facility] Forms: - Medication Reconciliation Form [facility] - Thank You Letter [facility] - Antibiotic Education [facility] - Prescription Opioid Use [facility] Prescriptions: - Hydroxyzine HCl 25 mg Oral Tablet - take 1 tablet by ORAL route every 6 hours As needed; 30 tablet; Refills: 0, [facility] Product Selection Permitted Signatures: Dispatcher [employer] EDFlaco Raymond PA PA m Ann Santa, ESTEPHANIA RN Vikash Robins DO DO ms3
[2022-08-13 17:23] VITALS: TEMP 98.1
[2022-08-13 17:26] VITALS: BP 127/87; O2SAT 95
--- NOTE | 2022-08-14 11:17 | EKG ---
Test Date: 2022-08-13 Test Time: 14:00:13 Design Checker: JULIETA MEASUREMENT RESULTS: Intervals: Rate: 90 CO: 174 QRSD: 108 QT: 366 QTc: 447 [place]: P: 66 CO: 174 QRS: 55 T: 72 INTERPRETIVE STATEMENTS: Normal sinus rhythm with sinus arrhythmia Normal ECG No previous ECG available for comparison Electronically Signed On 08-14-22 11:15:14 PSYCHIATRIC NP by Ayo Vang
== END 2022-08-13 16:25 | disposition home or self-care (01) ==
LOC: ER 13:40
DX: R06.00 Dyspnea, unspecified (principal); R07.89 Other chest pain
CPT/HCPCS: 36415; 71275; 80048; 80076; 83735; 84484; 85025; 93005; 99283; Q9967